=== PATIENT | female | born 1955 | race Two or more races ===

== ENCOUNTER 2017-11-16 16:24 | Emergency (ER) | payer OTHER ==
[~2017-11-16] VITALS: Ht 162.6 cm; Wt 67.1 kg
[2017-11-16 16:43] VITALS: BP 140/75
[2017-11-16] MEDS ORDERED: IBUPROFEN 600 MG TABLET PO ONE ×2 (17:00→17:10)
== END 2017-11-16 18:23 | disposition home or self-care (01) ==
LOC: ER 16:29
DX: R05 Cough (principal); M54.9 Dorsalgia, unspecified; Z88.5 Allergy status to narcotic agent; Z88.6 Allergy status to analgesic agent
CPT/HCPCS: 71045-TC; A4606; Z7610